=== PATIENT | male | born 1940 | race Caucasian/White ===

== ENCOUNTER 2018-10-05 15:13 | Emergency (ER) | payer OTHER ==
[~2018-10-05] VITALS: Ht 172.7 cm; Wt 87.5 kg
[2018-10-05] MEDS ORDERED: AMARYL2 MG PO (15:21)
[2018-10-05] MEDS ORDERED: HYDROCHLOROTH12.5 M1 PO (15:21)
[2018-10-05] MEDS ORDERED: PRINIVIL10 MG PO (15:21)
[2018-10-05] MEDS ORDERED: LEVEMIR100 UNIT/1 INJECTION (15:22)
[2018-10-05] MEDS ORDERED: METFORMIN HCL500 MG PO (15:22)
[2018-10-05] MEDS ORDERED: CRESTOR5 MG PO (15:23)
[2018-10-05] MEDS ORDERED: JANUVIA 50 MG T50 MG PO (15:23)
[2018-10-05 15:46] LABS: ABSOLUTE EOSINOPHILS 0.4 thou/uL (0.0-0.7); ABSOLUTE LYMPHOCYTES 1.9 thou/uL (0.8-5.3); ABSOLUTE MONOCYTES 0.8 thou/uL (0.0-1.2); ABSOLUTE NEUTROPHILS 7.7 thou/uL (1.6-8.1); BASOPHILS 0.3 %; EOSINOPHILS 3.5 %; HEMATOCRIT 39.9 % (42.0-52.0); HEMOGLOBIN 13.6 gm/dL (14.0-18.0); LYMPHOCYTES 17.8 %; MCH 30.3 pg (26.0-34.0); MCV 89.1 fL (80.0-100.0); MONOCYTES 7.6 %; MPV 8.1 fl. (7.2-11.1); NUCLEATED RBCS 0 /100WBC; PLATELET COUNT* 343 thou/uL (150-400); POLYS 70.8 %; RBC 4.48 mil/uL (4.50-6.00); RDW-CV 13.5 % (10.5-14.5); WBC 10.9 thou/uL (4.0-11.0)
[2018-10-05 15:54] LABS: ANION GAP 9 mmol/L (7-16); BUN 14 mg/dL (7-18); CALCIUM 9.5 mg/dL (8.5-10.1); CHLORIDE 95 mmol/L (98-107); CO2 30 mmol/L (21-32); CREATININE 0.8 mg/dL (0.6-1.3); GLUCOSE 113 mg/dL (70-99); POTASSIUM 4.1 mmol/L (3.5-5.1); SODIUM 134 mmol/L (136-145)
[2018-10-05 16:05] LABS: ALBUMIN 3.7 g/dL (3.4-5.0); ALKALINE PHOSPHATASE 83 U/L (46-116); LIPASE 127 U/L (73-393); NT-PRO BRAIN NAT PEPTIDE 143 pg/mL (<300); SGOT 20 U/L (15-37); SGPT 27 U/L (30-65); TOTAL BILIRUBIN 0.4 mg/dL (<0.1-1.0); TROPONIN-I LEVEL <0.06 ng/mL (<0.06)
[2018-10-05 16:59] VITALS: BP 158/63
--- NOTE | 2018-10-06 16:59 | EKG ---
[place] [address] ELECTROCARDIOGRAM REPORT Name: VALENTIN RAMSEY [id number] Admission: 10/05/18 Attend Phys: Discharge: 10/05/18 Date of : 40 Report #: [id number] THIS REPORT FOR: //name// [facility] ED Test Date: 2018-10-05 Test Time: 15:27:02 Pat Name: VALENTIN RAMSEY Department: Room: Gender: M Box Chipper: : 1940 Requested By: Alvarado Salazar Order Number: [id number] MD: Go Tejada Measurements Intervals [place] Rate: 68 P: 0 NV: 210 QRS: -33 QRSD: 92 T: 45 QT: 394 QTc: 420 Interpretive Statements Sinus rhythm Left axis deviation Borderline low voltage, extremity leads No previous ECG available for comparison Electronically Signed On 10-06-2018 16:59:04 CDT by Go Tejada [email or web address] <ELECTRONICALLY SIGNED> By: Go Tejada MD, [facility] 10/06/18 1659 1527 1527 Go Tejada MD, FACC /EPI
== END 2018-10-05 17:00 | disposition home or self-care (01) ==
LOC: M.ERS 15:13
PROVIDERS: Emergency Medicine
DX: E11.649 Type 2 diabetes mellitus with hypoglycemia without coma (principal); I10 Essential (primary) hypertension; E78.00 Pure hypercholesterolemia, unspecified; Z79.4 Long term (current) use of insulin

== ENCOUNTER → 2019-05-20 | Outpatient (CLI) | payer OTHER ==
[~2019-05-20] MED LIST: AMARYL2 MG PO; ASA81BEC PO; CRESTOR5 MG PO; HYDROCHLOROTH12.5 M1 PO; JANUVIA 50 MG T50 MG PO; LEVEMIR100 UNIT/1 INJECTION; METFORMIN HCL500 MG PO; NITROGLYCERIN0.4 MG SUBLING; PLAVIX 75 MG TA75 MG PO; PRINIVIL10 MG PO; TOPROL XL25 MG PO
--- NOTE | 2019-05-20 17:23 | CARDNUC ---
[place] [address] CARDIAC NUCLEAR IMAGING REPORT Name: VALENTIN RAMSEY Room: [facility]#: [id number] Admission: 05/20/19 Attend Phys: Jean Marie Kc MD Discharge: Date of : 40 Date of Service: 05/20/19 1722 Report #: [id number] THIS REPORT FOR: //name// APPROVED REPORT Study performed: 05/20/2019 14:56:32 Exam: Nuclear Stress Test Indication: Abnormal EKG, Dyspnea, Syncope Patient Location: Out-Patient Stress Tech: Kaila PEDROZA Tech:FROILAN Douglas Ht: 5 ft 8 in Wt: 183 lbs BSA: 1.97 m2 BMI: 27.82 Medical History Medical History: Hyperlipidemia, HTN, Diabetes Medications: asa, lasix, lisinopril/hctz, k-dur, crestor Allergies: nkda Cardiac Risk Factors: age, hyperlipidemia, hyptension, diabetes Stress Test Details Stress Test: Pharmacologic stress testing performed using 0.4 mg of regadenoson per 5 mL given IV over 10 seconds. Reason for pharmacologic stress test: physical limitation. HR Resting HR: 70 bpm Max Heart Rate (APMHR): 142 bpm Max HR Achieved: 95 bpm Target HR (85% APMHR): 120 bpm % of APMHR: 66 Recovery HR: 89 bpm BP Resting BP: 153/69 mmHg Max BP: 156/65 mmHg ECG Resting ECG: Sinus Rhythm Stress ECG: Sinus Rhythm ST Change: None Arrhythmia: None Recovery ECG: Sinus Rhythm Recovery ST Change: None [address] [address] CARDIAC NUCLEAR IMAGING REPORT Name: VALENTIN RAMSEY Room: [facility]#: [id number] Admission: 05/20/19 Attend Phys: Jean Marie Kc MD Discharge: Date of : 40 Date of Service: 05/20/19 1722 Report #: [id number] Recovery Arrhythmia: None Clinical Reason for Termination: Completed protocol Stress Symptoms: 0 Exercise duration: 0 min sec Exercise capacity: 1 METs The patient tolerated Lexiscan infusion without significant cardiac symptoms. Stress ECG Conclusion The baseline 12-lead EKG shows sinus rhythm without significant ST or T wave abnormality. EKGs obtained during and post Lexiscan infusion show sinus rhythm with no significant ST or T wave changes when compared to baseline. There were no stress-induced arrhythmias. NM EXAM: Myocardial Perfusion REST/STRESS Imaging Protocol: Rest Tc-99m/Stress Tc-99m 1 day Resting Data Rest SPECT myocardial perfusion imaging was performed in supine position 30 minutes following the intravenous injection of 11.2 mCi of Tc-99m Sestamibi. Time of rest injection: 1255 Date: 05/20/2019 The images were gated to evaluate regional wall motion and calculate left ventricular ejection fraction. Administration Route: IV Pharmacologic Stress Pharmacologic stress test was performed by injecting Regadenoson 0.4 mg IV push followed by the intravenous injection of 31.6 mCi of Tc-99m Sestamibi. Time of stress injection: 1505 Date: 05/20/2019 Administration Route: IV Gated Stress SPECT was performed 40 minutes after stress injection. The images were gated to evaluate regional wall motion and calculate left ventricular ejection fraction. Prone imaging was performed. Study Quality Study: Good Artifact: No artifact Study Data At rest, the left ventricular ejection fraction was 61%.. [place] [address] CARDIAC NUCLEAR IMAGING REPORT Name: VALENTIN RAMSEY Room: [facility]#: [id number] Admission: 05/20/19 Attend Phys: Jean Marie Kc MD Discharge: Date of : 40 Date of Service: 05/20/19 1722 Report #: [id number] Post stress, the left ventricular ejection was 60%.. TID = 0.99. Perfusion There is a small to moderate size mild intensity reversible defect involving the basal portion of the inferior wall suggestive of ischemia. No other significant fixed or reversible defects were identified. Wall Motion There is mild hypokinesis of the basal inferior wall. Overall left particular systolic function is preserved. Nuclear Conclusion ECG Findings: negative for ischemia Clinical Findings: negative for ischemia Nuclear Findings: positive for ischemia Exercise Capacity: not assessed Left Ventricular Function: preserved Risk Study: moderate Perfusion images suggest ischemia of the basal portion the inferior wall. Global LV systolic function is preserved with wall motion of normality says outlined above. This is a moderate risk study. <Conclusion> The baseline 12-lead EKG shows sinus rhythm without significant ST or T wave abnormality. EKGs obtained during and post Lexiscan infusion show sinus rhythm with no significant ST or T wave changes when compared to baseline. There were no stress-induced arrhythmias. <ELECTRONICALLY SIGNED> By: Go Tejada MD, FACC 05/20/191721 21 21 Go Tejada MD, FACC /INF
== END ==
LOC: M.NUC 04-09 11:12
DX: R94.31 Abnormal electrocardiogram [ECG] [EKG] (principal); R55 Syncope and collapse; R06.00 Dyspnea, unspecified; E78.5 Hyperlipidemia, unspecified; I10 Essential (primary) hypertension; Z79.899 Other long term (current) drug therapy

== ENCOUNTER 2019-05-24 09:17 | Inpatient (IN) | payer OTHER ==
[~2019-05-24] VITALS: Ht 172.7 cm; Wt 83.9 kg
[2019-05-24] VITALS (14 sets, daily range): BP systolic 94–145; BP diastolic 34–97
--- NOTE | ~2019-05-24 | SHORT ---
[address] [address] SHORT STAY SUMMARY Name: VALENTIN RAMSEY Room: [address] IN M.R.#: [id number] Admission: 05/24/19 Attend Phys: Jean Marie Kc MD, F Discharge: 05/25/19 Date of : 40 Report #: [id number] THIS REPORT FOR: //name// CC: Joe Kc DATE OF SERVICE: 05/25/2019 ADDENDUM DISCHARGE DIAGNOSES: 1. Coronary artery disease. 2. Diabetes. 3. Hypertension. 4. Hyperlipidemia. 5. Acute stroke with expressive aphasia. 6. Vasovagal syncope. DISCHARGE SUMMARY PROCEDURES: Left heart catheterization with selective coronary arteriograms via the right radial artery. By: 1440 2055Jean Marie Kc MD, FACC /nt
[~2019-05-24 09:17] MED LIST changes: -ASA81BEC PO; -NITROGLYCERIN0.4 MG SUBLING; -PLAVIX 75 MG TA75 MG PO; -TOPROL XL25 MG PO
[2019-05-24 10:30] LABS: HEMATOCRIT 38.5 % (42.0-52.0); HEMOGLOBIN 13.2 gm/dL (14.0-18.0); MCH 30.4 pg (26.0-34.0); MCHC 34.2 g/dL (28.0-37.0); MCV 88.8 fL (80.0-100.0); MPV 8.3 fl. (7.2-11.1); RBC 4.33 mil/uL (4.50-6.00); RDW-CV 13.3 % (10.5-14.5); WBC 8.4 thou/uL (4.0-11.0)
[2019-05-24 10:38] LABS: ANION GAP 7 mmol/L (7-16); BUN 11 mg/dL (7-18); CALCIUM 8.5 mg/dL (8.5-10.1); CHLORIDE 97 mmol/L (98-107); CO2 29 mmol/L (21-32); CREATININE 0.7 mg/dL (0.6-1.3); GLUCOSE 45 mg/dL (70-99); POTASSIUM 3.9 mmol/L (3.5-5.1); SODIUM 133 mmol/L (136-145)
[2019-05-24 10:39] LABS: APTT 29.3 Seconds (25.0-31.3); PROTIME 10.6 Seconds (9.20-11.50)
[2019-05-24 10:42] LABS: ALBUMIN 3.3 g/dL (3.4-5.0); ALKALINE PHOSPHATASE 65 U/L (46-116); CHOLESTEROL 104 mg/dL (<200); HDL CHOLESTEROL 34 mg/dL (>40); LDL CHOLESTEROL 61 mg/dL (<100); SGOT 19 U/L (15-37); SGPT 20 U/L (30-65); TC:HDL 3.1 Ratio (Not establshd); TOTAL BILIRUBIN 0.5 mg/dL (<0.1-1.0); TOTAL PROTEIN 7.2 g/dL (6.4-8.2); TRIGLYCERIDE 45 mg/dL (<150); VLDL 9 mg/dL (<40)
[2019-05-24 10:45] LABS: SERUM ASSESSMENT Clear
--- NOTE | 2019-05-24 14:12 | EKG ---
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: : 1940 Requested By: Jean Marie Kc Order Number: [id number] Reading MD: Jean Marie Kc Measurements Intervals [place] Rate: 62 P: 3 CT: 213 QRS: -44 QRSD: 93 T: 42 QT: 403 QTc: 410 Interpretive Statements Sinus rhythm Borderline prolonged CT interval Left anterior fascicular block Abnormal R-wave progression, late transition Compared to ECG 10/05/2018 15:27:02 no change Electronically Signed On 05-24-2019 14:12:13 SCAFFOLDING HELPER by Jean Marie Kc [email or web address] <ELECTRONICALLY SIGNED> By: Jean Marie Kc MD, [facility] 05/24/19 1412 1030 1030 Jean Marie cK MD, FAC /EPI
[2019-05-24 16:28] LABS: HEMOGLOBIN 12.3 gm/dL (14.0-18.0); MCH 30.4 pg (26.0-34.0); MCHC 34.2 g/dL (28.0-37.0); MCV 88.8 fL (80.0-100.0); MPV 8.5 fl. (7.2-11.1); RBC 4.05 mil/uL (4.50-6.00); RDW-CV 13.4 % (10.5-14.5)
[2019-05-24 16:32] LABS: CALCIUM 8.5 mg/dL (8.5-10.1); CREATININE 0.8 mg/dL (0.6-1.3)
[2019-05-24 16:36] LABS: ALBUMIN 2.9 g/dL (3.4-5.0); TOTAL BILIRUBIN 0.6 mg/dL (<0.1-1.0); TOTAL PROTEIN 6.5 g/dL (6.4-8.2)
[2019-05-24 16:39] LABS: APTT 27.8 Seconds (25.0-31.3); INR 1.1; PROTIME 10.8 Seconds (9.20-11.50)
[2019-05-25] VITALS (12 sets, daily range): BP systolic 95–156; BP diastolic 28–82
[2019-05-25 03:58] LABS: URINE BILIRUBIN NEGATIVE (Negative); URINE BLOOD NEGATIVE (Negative); URINE CLARITY CLEAR; URINE COLOR YELLOW; URINE GLUCOSE-RANDOM 1+ (Negative); URINE KETONES TRACE (Negative); URINE LEUKOCYTES NEGATIVE (Negative); URINE NITRITE NEGATIVE (Negative); URINE PROTEIN NEGATIVE (Negative); URINE UROBILINOGEN 0.2 E.U./dl (0.2-1.0)
--- NOTE | 2019-05-25 11:43 | CARD ---
[facility] [address] [place] [address] CARDIAC CATH REPORT Name: VALENTIN RAMSEY Room: [address] IN .R.#: [id number] Admission: 05/24/19 Attend Phys: Jean Marie Kc MD, F Discharge: Date of : 40 Report #: [id number] THIS REPORT FOR: //name// APPROVED REPORT Study performed: 05/24/2019 10:39:53 Patient Details Patient Status: Out-Patient Room #: The patient is a 78 year-old male Event Personnel Dr. Jean Marie Kc, Extension Work Instructor Nicolas Carbajal, ARRT Scrub Karen Henson RN Monitor Raphael Davis RN Instrument Calibrator Procedures Performed [facility] w/wo Coronaries Indication Syncope, Positive stress test Risk Factors Hypercholesterolemia, Hypertension, Diabetes Admission/Lab Medications/Medications given during procedure patient developed low BP during the procedure unresponsive to IV saline. IV Dopamine was transiently administreted till the BP increased. Patient transiently developed bradycardia and was given 0.5 mg. of IV atropine. Procedure Narrative The patient was brought electively to the Cardiac Catheterization Laboratory and was prepped and draped in a sterile manner. The right wrist was infiltrated with 1% Lidocaine subcutaneous anesthesia. A 5 sheath was inserted into the right radial artery. Coronary angiography was performed using coronary diagnostic catheters. The right coronary system was accessed and visualized with a Diagnostic catheter. The left coronary system was accessed and visualized with a Diagnostic catheter. Left ventricular/Aortic Valve gradient assessed via catheter pullback. Closure device was deployed with a Fr vascband. The patient tolerated the procedure well and there were no complications associated with the procedure. There was no hematoma. Difficulty placing the 6 burundian sheath, therefore a 5 [place] [address] CARDIAC CATH REPORT Name: VALENTIN RAMSEY Room: [address] IN [facility]#: [id number] Admission: 05/24/19 Attend Phys: Jean Marie Kc MD, F Discharge: Date of : 40 Report #: [id number] was used. Because of transient hypotension and bradycardia, the patient was transfered to the ICU after the procedure. Intraoperative Conscious Sedation Sedation start time: 12.04 Case end Time: 0 Fentanyl 25.0 mcg Versed 2.0 mg Fluoro Time: 6.3 minutes Dose: DAP 24945 cGycm2 848 mGy Contrast Type and Amount: Visipaque 120 Coronary Angiography The patient's coronary anatomy is right dominant. Diagnostic Cath Left Main 60% distal stenosis noted LAD 80% proximal and 60% mid stenosis noted. Circumflex 0% stenosis noted Right Coronary 95% ostial stenosis noted, and 50% mid stenosis noted Ramus 0% stenosis noted Left Ventriculography Left Ventriculography was not performed. Hemodynamics The aortic pressure is 89/41 mmHg with a mean of 56 mmHg. The left ventricular pressure is 66/-5 mmHg with a mean of mmHg. The left ventricular end diastolic pressure is 12 mmHg. There was no gradient across the aortic valve upon pullback. Pullback from the left ventricle to the aorta revealed no gradient across the aortic valve. Conclusion 1. CAD manifested by a 60% left main stenosis, 80% stenosis of the proximal lad, and 95% ostial stenosis of the rca Recommendations CABG <ELECTRONICALLY SIGNED> By: Jean [facility] Kc MD, [facility] 05/25/19 1143 1143 1143Daviliana Kc MD, FAC /INF
[2019-05-25] MEDS ORDERED: NITROGLYCERIN0.4 MG SUBLING (12:37)
[2019-05-25] MEDS ORDERED: TOPROL XL25 MG PO (12:41)
[2019-05-25] MEDS ORDERED: PLAVIX 75 MG TA75 MG PO (12:48)
[2019-05-25] MEDS ORDERED: ASA81BEC PO (13:47)
--- NOTE | 2019-05-28 13:50 | CON ---
[address] [address] CONSULTATION Name: VALENTIN RAMSEY Room: [address] IN M.Titi.#: [id number] Admission: 05/24/19 Attend Phys: Jean Marie Kc MD, F Discharge: 05/25/19 Date of : 40 Report #: [id number] THIS REPORT FOR: //name// CC: Joe Kc DATE OF SERVICE: 05/25/2019 HISTORY OF PRESENT ILLNESS: This is a 78-year-old male patient who was discussed with Dr. Kc, the enterprise application architect and I talked to the patient and the . This patient has advanced coronary artery disease and he is going to see a cardiothoracic surgeon for the possibility of coronary bypass surgery. He had a cardiac cath and the noticed that his speech was not as good as it was before. Subsequently, he has returned back to his baseline. He never had this kind of episode before. There was nothing which is aggravating his speech and it was bad until this morning, but it has fully resolved now, according to the nurse. REVIEW OF SYSTEMS: Positive for coronary artery disease. He is also a diabetic. He said he is not having much symptom at the moment. He does not complain of any chest pain or any respiratory problem. He denies any eye, ENT, GI, , musculoskeletal, constitutional, dermatological, hematological, psychiatric, throat, allergic symptom associated with present symptomatology. PAST MEDICAL HISTORY: Positive for diabetes. FAMILY HISTORY: Unremarkable. SOCIAL HISTORY: He said he does not drink any alcohol or smoke. PHYSICAL EXAMINATION: NEUROLOGIC: Indicate he is alert, responsive, able to follow simple and complex command. His speech looks back to his baseline. His memory and fund of knowledge is also at his baseline. His cranial nerve examination 2-12 does not appear to be showing any definite abnormality. Strength, sensation, reflexes and tones are symmetrical. He does not have any meningeal sign. I could not look at the patient's fundus. Pulses are difficult to tell, but he has no edema, cyanosis or jaundice. CARDIAC: Appear unremarkable. LUNGS: No respiratory difficulty or rhonchi was noticed. VITAL SIGNS: His blood pressure is 126/54, respiration is 19, pulse is 63, temperature is 98.3. LABORATORY DATA: Indicates a white count of 9. His sodium is low at 135. IMPRESSION: [place] [address] CONSULTATION Name: VALENTIN RAMSEY Room: [address]#: [id number] Admission: 05/24/19 Attend Phys: Jean Marie Kc MD, F Discharge: 05/25/19 Date of : 40 Report #: [id number] 1. The episode appeared to be transient ischemic attack, but stroke cannot be fully excluded. We will do an MRI to further evaluate that. 2. He is somewhat hyponatremic, but that is unlikely to be the etiology of the patient's symptoms. He is already on aspirin and statin. His blood pressure also fluctuated some, but is pretty stable now, that may have contributed to his symptoms also. RECOMMENDATIONS: 1. MRI of the brain. 2. MRA of the head and neck. 3. If MRI demonstrates a stroke, then I think he should be on a combination of aspirin and Plavix. 4. If MRI shows no stroke, then he can be on anything, but I will favor a full dose of aspirin at that time if it is okay from cardiology perspective. 5. He should follow up for vascular risk factor management as an outpatient with his primary. All of it was discussed with the patient and the and they want to follow this plan. <ELECTRONICALLY SIGNED> By: Abhijit Lennon MD 05/28/19 1350 0945 1021Pferoz Lennon MD /nt
[2019-06-01] MEDS ORDERED: LISINOPRIL-HCT1 EACH PO (14:17)
[2019-06-01] MEDS ORDERED: TIMOLOL MALEATE5 M1 OPHTHALMIC (14:20)
[2019-06-01] MEDS ORDERED: LATANOPROST 0.2.5 ML OPHTHALMIC (14:20)
[2019-06-01] MEDS ORDERED: K-DUR10 MEQ PO (14:21)
[2019-06-01] MEDS ORDERED: FUROSEMIDE 20 M20 MG PO (14:21)
[2019-06-01] MEDS ORDERED: FISH OIL 1,0001 EAC9 PO (14:22)
[2019-06-01] MEDS ORDERED: TRESIBA100 UNIT/1 SUBQ (14:47)
[2019-06-03] MEDS ORDERED: ASPIRIN EC325 M1 PO (13:33)
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
[2019-06-11] MEDS ORDERED: AMARYL4 MG PO (19:54)
[2019-06-11] MEDS ORDERED: JANUVIA100 MG PO (19:55)
== END 2019-05-25 15:20 | disposition home or self-care (01) | DRG 287 ==
LOC: M.CL 09:17 → M.TBA-CV 14:40 → M.ICU 14:40
PROVIDERS: ADMIT Internal Medicine Cardiovascular Disease
DX: I25.10 Atherosclerotic heart disease of native coronary artery without angina pectoris (principal); G45.9 Transient cerebral ischemic attack, unspecified; E11.9 Type 2 diabetes mellitus without complications; I95.9 Hypotension, unspecified; R00.1 Bradycardia, unspecified; Z79.899 Other long term (current) drug therapy